=== PATIENT | female | born 1955 | race Caucasian/White ===

== ENCOUNTER 2017-03-17 08:34 | Emergency (ER) | payer OTHER ==
[2017-03-17 09:15] LABS: HEMOGLOBIN 13.7 gm/dl (12.3-15.3); RED BLOOD COUNT 4.68 M/UL (4.00-5.10); WHITE BLOOD COUNT 7.3 K/UL (4.5-11.0)
== END 2017-03-17 14:18 | disposition home or self-care (01) ==
LOC: ER1 08:34 → ZEROF 10:20
PROVIDERS: Emergency Medicine; Internal Medicine
DX: R07.1 Chest pain on breathing (principal); R06.02 Shortness of breath; Z88.1 Allergy status to other antibiotic agents; Z88.5 Allergy status to narcotic agent
CPT/HCPCS: 36415; 80053; 80307; 81001; 82550; 82553; 83874; 84484; 85025; 85379; 85610; 85730; 93005; 96374; 96375; 99285; J1885; J2270; J2405; J7050; Q9963

== ENCOUNTER → 2021-11-11 | Outpatient (CLI) | payer MEDICARE ==
[~2021-11-11] MED LIST: PROTONIX40 MG PO
[2021-11-11 09:18] LABS: HEMOGLOBIN 13.1 gm/dl (12.3-15.3); RED BLOOD COUNT 4.37 M/UL (4.00-5.10)
[2021-11-12 07:12] LABS: A/G RATIO 1.6 (1.2-2.2); ALKALINE PHOSPHATASE, S 87 IU/L (44-121); ALT (SGPT) 43 IU/L (0-32); AST (SGOT) 44 IU/L (0-40); BILIRUBIN, TOTAL 0.7 mg/dL (0.0-1.2); BUN 19 mg/dL (8-27); BUN/CREATININE RATIO 18 (12-28); CALCIUM, SERUM 9.5 mg/dL (8.7-10.3); CARBON DIOXIDE, TOTAL 21 mmol/L (20-29); CHLORIDE, SERUM 107 mmol/L (96-106); CHOLESTEROL, TOTAL 171 mg/dL (100-199); CREATININE, SERUM 1.05 mg/dL (0.57-1.00); EGFR IF AFRICN AM 64 (>59); EGFR IF NONAFRICN AM 55 (>59); GLOBULIN, TOTAL 2.8 g/dL (1.5-4.5); GLUCOSE, SERUM 91 mg/dL (65-99); HDL CHOLESTEROL 52 mg/dL (>39); LDL CHOLESTEROL CALC 103 mg/dL (0-99); POTASSIUM, SERUM 4.5 mmol/L (3.5-5.2); PROTEIN, TOTAL, SERUM 7.2 g/dL (6.0-8.5); SODIUM, SERUM 142 mmol/L (134-144); T. CHOL/HDL RATIO 3.3 ratio (0.0-4.4); TRIGLYCERIDES 85 mg/dL (0-149)
== END ==
LOC: MAMO 07:40
PROVIDERS: Family Medicine
DX: Z12.31 Encounter for screening mammogram for malignant neoplasm of breast (principal); N63.0 Unspecified lump in unspecified breast
CPT/HCPCS: 36415; 76641; 77066; 80053; 80061; 83735; 85025; G0279

== ENCOUNTER → 2021-11-12 | Outpatient (CLI) | payer MEDICARE | LOC: HEART 5 07:36 | DX: R07.9 Chest pain, unspecified (principal); R06.02 Shortness of breath | CPT/HCPCS: 78452; 93306; A9502; J2785 ==

== ENCOUNTER 2021-12-29 09:53 | Emergency (ER) | payer MEDICARE ==
[2021-12-29 11:13] LABS: HEMOGLOBIN 12.7 gm/dl (12.3-15.3); RED BLOOD COUNT 4.45 M/UL (4.00-5.10)
[2021-12-29] MEDS ORDERED: VALTREX1000 MG PO (13:18)
[2021-12-29] MEDS ORDERED: OMNICEF 300 MG300 MG PO (13:18)
[2021-12-29] MEDS ORDERED: PERCOCET 5-3251 EACH PO (13:20)
== END 2021-12-29 13:58 | disposition home or self-care (01) ==
LOC: ER1 09:53
PROVIDERS: Emergency Medicine
DX: B02.9 Zoster without complications (principal); N39.0 Urinary tract infection, site not specified; M79.661 Pain in right lower leg; Z87.442 Personal history of urinary calculi; Z90.710 Acquired absence of both cervix and uterus
CPT/HCPCS: 80053; 81001; 82550; 82553; 85025; 87086; 93971; 96374; 96375; 96376; 99284; J2270; J2405

== ENCOUNTER → 2022-04-16 | Outpatient (CLI) | payer MEDICARE ==
[~2022-04-16] MED LIST changes: +OMNICEF 300 MG300 MG PO; +PERCOCET 5-3251 EACH PO; +VALTREX1000 MG PO
[2022-04-17 09:15] LABS: CREATININE, URINE 94.3 mg/dL (Not Estab.)
== END ==
LOC: US 09:11
PROVIDERS: Internal Medicine Nephrology
DX: N17.9 Acute kidney failure, unspecified (principal); K76.0 Fatty (change of) liver, not elsewhere classified
CPT/HCPCS: 36415; 80053; 81001; 82043; 82570; 84156

== ENCOUNTER 2022-04-24 19:04 | Emergency (ER) | payer MEDICARE ==
[2022-04-24] MEDS ORDERED: NAPROXEN500 MG PO (22:13)
== END 2022-04-24 22:30 | disposition home or self-care (01) ==
LOC: ER1 19:04
DX: S90.32XA Contusion of left foot, initial encounter (principal); I10 Essential (primary) hypertension; Z90.710 Acquired absence of both cervix and uterus; Z88.1 Allergy status to other antibiotic agents; W01.10XA Fall on same level from slipping, tripping and stumbling with subsequent striking against unspecified object, initial encounter
CPT/HCPCS: 73630; 99283

== ENCOUNTER → 2022-07-01 | Outpatient (CLI) | payer MEDICARE ==
[~2022-07-01] MED LIST changes: +NAPROXEN500 MG PO
== END ==
LOC: EXRD 09:24
DX: M47.22 Other spondylosis with radiculopathy, cervical region (principal); R59.0 Localized enlarged lymph nodes
CPT/HCPCS: 72040

== ENCOUNTER → 2022-07-13 | Outpatient (CLI) | payer MEDICARE | LOC: KOH-I 08:35 | DX: R59.0 Localized enlarged lymph nodes (principal) | CPT/HCPCS: 76882 ==